=== PATIENT | male | born 1980 | race Caucasian/White ===

== ENCOUNTER 2019-04-17 04:55 | Emergency (ER) | payer BC ==
[2019-04-17] MEDS ORDERED: Sodium Chloride 0.9% 10 ML Syringe FLUSH PRN (05:16)
[2019-04-17] MEDS ORDERED: Sodium Chloride 0.9% 2.5 ML Syringe FLUSH PRN (05:16)
[2019-04-17] MEDS ORDERED: Sodium Chloride 0.9% 1,000 ML IV ONE (05:16)
--- NOTE | 2019-04-17 05:16 | EDM.PDOC ---
ED HPI GENERAL MEDICAL PROBLEM - General Chief Complaint: General Stated Complaint: HEART PALPITATIONS Time Seen by Provider: 04/17/19 05:06 - History of Present Illness INITIAL COMMENTS - FREE TEXT/NARRATIVE: HISTORY AND PHYSICAL: History of present illness: The patient is a healthy 38 y/o male who presents with 3 brief episodes of near syncope associated with lightheadedness that occurred while he was at work about 2 hours ago. The patient says that over the last 2 days he has not quite felt himself and has an ill-defined overall not well feeling but there was nothing specific going on such as fever chills upper respiratory symptoms abdominal pain vomiting or diarrhea. The patient says that this started on Wednesday and yesterday when he got to the job site he didn't feel quite right and felt a little strange feeling in the front of his head area there was no pain involved but as he was doing his job about 2 hours ago he was at a critical point where he could not stop doing what he was doing and he felt this buzzing sensation in the front of his head become more intense and he felt like he was going to pass out and fall backwards. He thought that incision because he knew that if he stopped doing his job at that point they would be serious ramifications and this occurred 3 times briefly and then when he was able to step away from his work he did so. He never fully passed out or blacked out and he was seated during these events. He did not have headache pain or neck pain and he did not have chest pain palpitations or shortness of breath during these episodes of near syncope. He says that after the events happened and he was able to step away from his work as that critical moment had passed he like his heart was racing but he thinks that may be more anxiety driven due to his concerns about the work he was doing. He says that he never got nauseated never got short of breath never got diaphoretic no vomiting and no focal numbness weakness or tingling to his extremities. He said that the headache started after these events and it is diffuse and ill-defined and not localize right or left front or back. The patient has no recent trauma. He does say that his mouth is felt very dry over the last 24 hours or so even though he is drinking a lot of water. The patient does drink 1 caffeinated beverage a day and does have one or 2 drinks at the end of his shift to help him go to sleep but he has not been drinking heavily recently. Here in the ED he has no complaints other than concerns about what happened at work tonight and understanding the cause as he tells me he has never left the work site before and this is the first and only time that has ever happened. He did not take any medications prior to coming here and he ambulated to the ED from triage. The patient does admit that he has "bad teeth" but he has not been able to get to a dentist and he has no specific new pain or swelling to those areas. He does also tell me that he has had some ringing in his ear for the last almost 10 months and has not sought evaluation but that is not new or different this evening either. The patient specifically says that he was not dizzy nor was the room spinning during these events it was a sensation like he was going to pass out. Again the palpitations occurred after the 3 brief episodes of near syncope. Review of systems: As per history of present illness and below otherwise all systems reviewed and negative. Past medical history: As per history of present illness and as reviewed below otherwise noncontributory. Surgical history: As per history of present illness and as reviewed below otherwise noncontributory. Social history: No reported history of drug or alcohol abuse. Family history: As per history of present illness and as reviewed below otherwise noncontributory. Physical exam: General: Well-developed well-nourished man who is nontoxic and vital signs are noted by me. He was easily in the ED without distress somewhat anxious on my evaluation HEENT: Atraumatic, normocephalic, pupils reactive, negative for conjunctival pallor or scleral icterus, mucous membranes moist, throat clear, neck supple, nontender, trachea midline. There is no mastoid tenderness or erythema bilaterally and the TMs are dulled bilaterally. There is no cervical adenopathy nuchal rigidity and no thyromegaly. There is no visible facial swelling and there is diffuse dental disease and multiple areas of dental decay the most noteworthy is the left lower premolar or molar area where there is erosion of teeth diffusely and there are multiple other areas of caries and same. Lungs: Clear to auscultation, breath sounds equal bilaterally, chest nontender. Heart: S1S2, regular, negative for clicks, rubs, or JVD. Abdomen: Soft, nondistended, nontender. Negative for masses or hepatosplenomegaly. Negative for costovertebral tenderness. Pelvis: Stable nontender. Genitourinary: Deferred. Rectal: Deferred. Extremities: Atraumatic, negative for cords or calf pain. Neurovascular unremarkable. No pedal edema or leg asymmetry Neuro: Awake, alert, oriented. Cranial nerves II through XII unremarkable. Cerebellum unremarkable. Motor and sensory unremarkable throughout. Exam nonfocal. Diagnostics: EKG CBC CMP troponin TSH orthostatic vitals. With reflex chest x-ray CT scan of the head Therapeutics: IV O2 monitor IV fluids , patient was offered Toradol and Tylenol and declines both I discussed with the patient at length of these episodes he had today are highly unusual and unexplainable from the workup that I performed and have offered him 23 hour observation. He says that he still has no pain and has no palpitations but he just doesn't feel right and feels very off and "kind of fuzzy in his head". He seems very resistant to wanting to stay in the hospital because he has his job and he has concerns about that but I stated my concerns about him going home without further evaluation and observation and not having a provider in town. If he chooses not to be admitted to the hospital and will place him on the expedited Follow- list to try to get into our clinic After much thought the patient has decided that he does not want to be admitted to the hospital. He is aware of our concerns and accepts and we will place his name on the follow-up list Impression: Episodes of near syncope and palpitations Definitive disposition and diagnosis as appropriate pending reevaluation and review of above. - Related Data Allergies Allergy/AdvReac Type Severity Reaction Status Date / Time No Known Allergies Allergy Verified 04/17/19 04:59 Home Meds: Home Meds . [No Known Home Meds] 04/17/19 [History] ED ROS GENERAL - Review of Systems Review Of Systems: Comprehensive ROS is negative, except as noted in HPI. ED EXAM, GENERAL - Physical Exam Exam: See Below (see dictation) Course - Vital Signs Last Recorded V/S: Last Vital Signs Temp 36.1 C 04/17/19 05:00 Pulse 59 L 04/17/19 05:34 Resp 14 04/17/19 05:34 BP 120/83 04/17/19 05:34 Pulse Ox 96 11/18/19 05:34 Orthostatic Blood Pressure [ 137/90 Standing] Orthostatic Blood Pressure [ 132/85 Sitting] Orthostatic Blood Pressure [ 139/89 Supine] - Orders/Labs/Meds Orders: Active Orders 24 hr Category Date Time Status Blood Glucose Check, Bedside [] ONETIME Care 04/17/19 05:09 Active Cardiac Monitoring [] . DIRECTED Care 04/17/19 05:14 Active Oxygen Therapy, ED [] ASDIRECTED Care 04/17/19 05:14 Active Pulse Oximetry [] ASDIRECTED Care 04/17/19 05:14 Active Sodium Chloride 0.9% [Normal Saline] 1,000 ml Med 04/17/19 05:16 Active IV STAT Sodium Chloride 0.9% [Saline Flush] Med 04/17/19 05:16 Active 10 ml FLUSH ASDIRECTED PRN Sodium Chloride 0.9% [Saline Flush] Med 04/17/19 05:16 Active 2.5 ml FLUSH ASDIRECTED PRN Saline Lock Insert [OM.PC] Stat Oth 04/17/19 05:16 Ordered Medication Orders Sodium Chloride (Normal Saline) 1,000 mls @ 999 mls/hr IV STAT ONE Stop: 04/17/19 06:16 Last Admin: 04/17/19 05:38 Dose: 999 mls/hr Sodium Chloride (Saline Flush) 10 ml FLUSH ASDIRECTED PRN PRN Reason: Keep Vein Open Sodium Chloride (Saline Flush) 2.5 ml FLUSH ASDIRECTED PRN PRN Reason: Keep Vein Open Labs: Laboratory Tests 04/17/19 04/17/19 04/17/19 Range/Units 05:00 05:00 05:00 WBC 6.22 (4.0-11.0) K/uL RBC 4.99 (4.50-5.90) M/uL Hgb 16.0 (13.0-17.0) g/dL Hct 44.3 (38.0-50.0) % MCV 88.8 (80.0-98.0) fL MCH 32.1 H (27.0-32.0) pg MCHC 36.1 (31.0-37.0) g/dL RDW Std Deviation 40.7 (28.0-62.0) fl RDW Coeff of Barbara 13 (11.0-15.0) % Plt Count 173 (150-400) K/uL MPV 9.50 (7.40-12.00) fL Neut % (Auto) 64.9 (48.0-80.0) % Lymph % (Auto) 22.8 (16.0-40.0) % [place] % (Auto) 10.8 (0.0-15.0) % Eos % (Auto) 1.0 (0.0-7.0) % Baso % (Auto) 0.5 (0.0-1.5) % Neut # (Auto) 4.0 (1.4-5.7) K/uL Lymph # (Auto) 1.4 (0.6-2.4) K/uL [place] # (Auto) 0.7 (0.0-0.8) K/uL Eos # (Auto) 0.1 (0.0-0.7) K/uL Baso # (Auto) 0.0 (0.0-0.1) K/uL Nucleated RBC % 0.0 /100WBC Nucleated RBCs # 0 K/uL Sodium 137 (136-148) mmol/L Potassium 3.9 (3.5-5.1) mmol/L Chloride 99 (98-107) mmol/L Carbon Dioxide 27.5 (21.0-32.0) mmol/L BUN 12 (7.0-18.0) mg/dL Creatinine 1.3 (0.8-1.3) mg/dL Est Cr Clr Drug Dosing 93.24 mL/min Estimated GFR (MDRD) > 60.0 ml/min Glucose 89 (74-106) mg/dL Calcium 8.9 (8.5-10.1) mg/dL Total Bilirubin 1.0 (0.2-1.0) mg/dL AST 56 H (15-37) IU/L ALT 160 H (14-63) IU/L Alkaline Phosphatase 57 (46-116) U/L Troponin I < 0.050 (0.000-0.056) ng/mL Total Protein 8.0 (6.4-8.2) g/dL Albumin 4.4 (3.4-5.0) g/dL Globulin 3.6 (2.6-4.0) g/dL Albumin/Globulin Ratio 1.2 (0.9-1.6) TSH 3rd Generation 1.37 (0.36-3.74) uIU/mL Urine Color COLORLESS Urine Appearance CLEAR Urine pH 5.5 (5.0-8.0) Ur Specific [place] <= 1.005 (1.001-1.035) Urine Protein NEGATIVE (NEGATIVE) mg/dL Urine Glucose (UA) NEGATIVE (NEGATIVE) mg/dL Urine Ketones NEGATIVE (NEGATIVE) mg/dL Urine Occult Blood NEGATIVE (NEGATIVE) Urine Nitrite NEGATIVE (NEGATIVE) Urine Bilirubin NEGATIVE (NEGATIVE) Urine Urobilinogen 0.2 (<2.0) EU/dL Ur Leukocyte Esterase NEGATIVE (NEGATIVE) Meds: Medications Generic Name Dose Route Start Last Admin Trade Name Freq PRN Reason Stop Dose Admin Sodium Chloride 1,000 mls @ 999 mls/hr 04/17/19 05:16 04/17/19 05:38 Normal Saline IV 04/17/19 06:16 999 mls/hr STAT ONE Administration Sodium Chloride 10 ml 04/17/19 05:16 Saline Flush FLUSH ASDIRECTED PRN Keep Vein Open Sodium Chloride 2.5 ml 04/17/19 05:16 Saline Flush FLUSH ASDIRECTED PRN Keep Vein Open Discontinued Medications Generic Name Dose Route Start Last Admin Trade Name Freq PRN Reason Stop Dose Admin Ketorolac Tromethamine 30 mg 04/17/19 05:45 04/17/19 05:50 Toradol IVPUSH 04/17/19 05:46 Not Given ONETIME ONE Departure - Departure Time of Disposition: 06:08 Disposition: Home, Self-Care 01 Condition: Good Clinical Impression: Near syncope - Discharge Information Forms: ED Department Discharge Additional Instructions: The following information is given to patients seen in the emergency department who are being discharged to home. This information is to outline your options for follow-up care. We provide all patients seen in our emergency department with a follow-up referral. The need for follow-up, as well as the timing and circumstances, are variable depending upon the specifics of your emergency department visit. If you don't have a primary care physician on staff, we will provide you with a referral. We always advise you to contact your personal physician following an emergency department visit to inform them of the circumstance of the visit and for follow-up with them and/or the need for any referrals to a consulting specialist. The emergency department will also refer you to a specialist when appropriate. This referral assures that you have the opportunity for followup care with a specialist. All of these measure are taken in an effort to provide you with optimal care, which includes your followup. Under all circumstances we always encourage you to contact your private physician who remains a resource for coordinating your care. When calling for followup care, please make the office aware that this follow-up is from your recent emergency room visit. If for any reason you are refused follow-up, please contact the [facility] emergency department at and ask to speak to the emergency department charge nurse. [facility] Primary [facility]- Internal Medicine and Family [address] [address] Please continue to monitor your symptoms and keep a symptom log of things that are on her unusual to help her provider in the clinic direct the next stages of your workup for these issues. Please call the clinic this morning and schedule a follow-up appointment in the next few days and make sure to mention that your name is on the expedited follow-up list. Return to ER as needed and as discussed. - My Orders Last 24 Hours: My Active Orders 04/17/19 05:09 Blood Glucose Check, Bedside [RC] ONETIME 04/17/19 05:14 Cardiac Monitoring [RC] . DIRECTED Oxygen Therapy, ED [RC] ASDIRECTED Pulse Oximetry [RC] ASDIRECTED 04/17/19 05:16 Sodium Chloride 0.9% [Normal Saline] 1,000 ml IV STAT Sodium Chloride 0.9% [Saline Flush] 10 ml FLUSH ASDIRECTED PRN Sodium Chloride 0.9% [Saline Flush] 2.5 ml FLUSH ASDIRECTED PRN Saline Lock Insert [OM.PC] Stat - Assessment/Plan Last 24 Hours: My Active Orders 04/17/19 05:09 Blood Glucose Check, Bedside [RC] ONETIME 04/17/19 05:14 Cardiac Monitoring [RC] . DIRECTED Oxygen Therapy, ED [RC] ASDIRECTED Pulse Oximetry [RC] ASDIRECTED 04/17/19 05:16 Sodium Chloride 0.9% [Normal Saline] 1,000 ml IV STAT Sodium Chloride 0.9% [Saline Flush] 10 ml FLUSH ASDIRECTED PRN Sodium Chloride 0.9% [Saline Flush] 2.5 ml FLUSH ASDIRECTED PRN Saline Lock Insert [OM.PC] Stat
[2019-04-17 05:40] LABS: BLOOD UREA NITROGEN,BUN 12 mg/dL (7.0-18.0); CARBON DIOXIDE,CO2 27.5 mmol/L (21.0-32.0); CHLORIDE,CL 99 mmol/L (98-107); GLUCOSE RANDOM 89 mg/dL (74-106); POTASSIUM,K 3.9 mmol/L (3.5-5.1); SODIUM,NA 137 mmol/L (136-148)
--- NOTE | 2019-04-17 05:42 | CR ---
INDICATION: Near syncopal event times 3 today TECHNIQUE: Chest radiograph 1 view on 2 films COMPARISON: None FINDINGS: Mediastinum: The mediastinum is normal in appearance. The heart silhouette is normal in size and morphology. Lung: Both lungs are unremarkable in appearance. No sign of pleural effusion seen. No pneumothorax is identified. Bone and Soft tissue: Unremarkable for age. IMPRESSION: 1. No acute cardiopulmonary disease is seen. Dictated by: George Shin MD @ 04/17/2019 05:41:11 (Electronically Signed)
--- NOTE | 2019-04-17 05:44 | CT ---
INDICATION: Near syncopal event times 3 today TECHNIQUE: CT Head without i.v. contrast. COMPARISON: None FINDINGS: CSF space: The ventricles are normal for age. Brain: No evidence of mass, acute infarction or hemorrhage is seen. No mass-effect or midline shift is seen. The brain parenchyma is otherwise normal in appearance with preservation of the fam-white matter junction. Calvarium: The visualized paranasal sinuses are well aerated. The mastoid air cells are clear. The visualized orbits are grossly unremarkable. The calvarium is unremarkable in appearance with no fractures identified. IMPRESSION: 1. No evidence of acute infarction, intracranial hemorrhage, or mass-effect seen. Please note that all CT scans at this facility use dose modulation, iterative reconstruction, and/or weight-based dosing when appropriate to reduce radiation dose to as low as reasonably achievable. Dictated by: George Shin MD @ 04/17/2019 05:42:21 (Electronically Signed)
[2019-04-17] MEDS ORDERED: Ketorolac 30 MG/ML SDV IVPUSH ONE (05:45)
== END 2019-04-17 06:15 | disposition home or self-care (01) ==
LOC: MW.ED 04:55
DX: R55 Syncope and collapse (principal); R00.2 Palpitations
CPT/HCPCS: 36415; 70450; 71045; 80053; 81003; 84443; 84484; 85025; 93005; 96360; 99284; J7040; 99285; J7030

== ENCOUNTER 2019-10-04 13:37 | Emergency (ER) | payer BC ==
[2019-10-04] MEDS ORDERED: Lidocaine 1% 10 ML MDV INJECT ONE (13:53)
[2019-10-04] MEDS ORDERED: Diphtheria,Pertussis(Acell),Tetanus Vaccine 0.5 ML Syringe IM ONE (13:59)
--- NOTE | 2019-10-04 13:59 | EDM.PDOC ---
ED HPI GENERAL MEDICAL PROBLEM - General Chief Complaint: Laceration Stated Complaint: CUT ON HAND Time Seen by Provider: 10/04/19 13:39 - History of Present Illness INITIAL COMMENTS - FREE TEXT/NARRATIVE: History of present illness: [Patient presents with a right nondominant hand that he dropped 2 pieces of heavy metal onto lacerating the volar aspect at the base of his fifth digit 1.5 cm laceration at this location that is clean he is describing the numbness distally to the wound full motor control is present tetanus is questionably not up-to-date patient does not have any other medical problems or other injuries. He is left-hand dominant. This occurred 1 hour prior to arrival] Review of systems: As per history of present illness and below otherwise all systems reviewed and negative. Past medical history: As per history of present illness and as reviewed below otherwise noncontributory. Surgical history: As per history of present illness and as reviewed below otherwise noncontributory. Social history: No reported history of drug or alcohol abuse. Family history: As per history of present illness and as reviewed below otherwise noncontributory. Physical exam: HEENT: Atraumatic, normocephalic, pupils reactive, negative for conjunctival pallor or scleral icterus, mucous membranes moist, throat clear, neck supple, nontender, trachea midline. Lungs: Clear to auscultation, breath sounds equal bilaterally, chest nontender. Heart: S1S2, regular, negative for clicks, rubs, or JVD. Abdomen: Soft, nondistended, nontender. Negative for masses or hepatosplenomegaly. Negative for costovertebral tenderness. Pelvis: Stable nontender. Genitourinary: Deferred. Rectal: Deferred. Extremities: Atraumatic, negative for cords or calf pain. Neurovascular unremarkable. 0.5 cm laceration to the volar aspect of the right nondominant fifth digit Neuro: Awake, alert, oriented. Cranial nerves II through XII unremarkable. Cerebellum unremarkable. Motor and sensory unremarkable throughout. Exam nonfocal. Diagnostics: [] Therapeutics: [] Impression: Fifth digit laceration [] Plan: To there being a crush injury and x-ray will be obtained the wound will then be anesthetized irrigated explored and repaired. Will be updated [] Definitive disposition and diagnosis as appropriate pending reevaluation and review of above. Right 5th Finger Pain Score (Numeric/FACES): 6 - Related Data Allergies Allergy/AdvReac Type Severity Reaction Status Date / Time No Known Allergies Allergy Verified 10/04/19 13:59 Home Meds: Home Meds . 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 Hematologic History: Reports: None Immunologic History: Reports: None Oncologic (Cancer) History: Reports: None Dermatologic History: Reports: None - Infectious Disease History Infectious Disease History: Reports: None - Past Surgical History Head Surgeries/Procedures: Reports: None Social & Family History - Family History Family Medical History: Noncontributory - Caffeine Use Caffeine Use: Reports: Energy Drinks ED ROS GENERAL - Review of Systems Review Of Systems: See Below ED EXAM, SKIN/RASH Exam: See Below ED SKIN PROCEDURES - Laceration/Wound Repair Right Digit - 5th (Baby) Appearance: Superficial, Clean Distal NVT: No Tendon Injury, Other (There is numbness distal to the injury on the volar aspect of the finger) Anesthetic Type: Digital Local Anesthesia - Lidocaine (Xylocaine): 1% Plain Local Anesthetic Volume: 5cc Skin Prep: Saline Exploration/Debridement/Repair: Wound Explored, In a Bloodless Field, Explored to Base Closed with: Sutures Lac/Wound length In cm: 1.5 (6 sutures) Suture Size: 3-0 Course - Vital Signs Last Recorded V/S: Last Vital Signs Temp 37.1 C 10/04/19 14:04 Pulse 84 10/04/19 14:04 Resp 16 10/04/19 14:04 BP 126/79 10/04/19 14:04 Pulse Ox 97 10/04/19 14:04 - Orders/Labs/Meds Orders: Active Orders 24 hr Category Date Time Status Vaccines to be Administered [RC] PER UNIT ROUTINE Care 10/04/19 13:59 Active Meds: Medications Discontinued Medications Generic Name Dose Route Start Last Admin Trade Name Freq PRN Reason Stop Dose Admin Diphtheria/Tetanus/Acell Pertussis 0.5 ml 10/04/19 13:59 Adacel IM 10/04/19 14:00 .ONCE ONE Lidocaine HCl 10 ml 10/04/19 13:53 10/04/19 14:41 Xylocaine 1% INJECT 10/04/19 13:54 Not Given ONETIME ONE Lidocaine HCl 5 ml 10/04/19 14:07 Xylocaine-Mpf 1% INJECT 10/04/19 14:08 ONETIME ONE Lidocaine HCl Confirm 10/04/19 14:07 10/04/19 14:41 Xylocaine-Mpf 1% Administered 10/04/19 14:08 Not Given Dose 5 ml .ROUTE .STK-MED ONE Departure - Departure Time of Disposition: 14:53 Disposition: Home, Self-Care 01 Clinical Impression: Laceration - Discharge Information *PRESCRIPTION DRUG MONITORING PROGRAM REVIEWED*: Not Applicable *COPY OF PRESCRIPTION DRUG MONITORING REPORT IN PATIENT NIESHA: Not Applicable Instructions: Laceration Care, Adult, [id number] Referrals: PCP,Unknown [Primary Care Provider] - Forms: ED Department Discharge Additional Instructions: The following information is given to patients seen in the emergency department who are being discharged to home. This information is to outline your options for follow-up care. We provide all patients seen in our emergency department with a follow-up referral. The need for follow-up, as well as the timing and circumstances, are variable depending upon the specifics of your emergency department visit. If you don't have a primary care physician on staff, we will provide you with a referral. We always advise you to contact your personal physician following an emergency department visit to inform them of the circumstance of the visit and for follow-up with them and/or the need for any referrals to a consulting specialist. The emergency department will also refer you to a specialist when appropriate. This referral assures that you have the opportunity for follow-up care with a specialist. All of these measure are taken in an effort to provide you with optimal care, which includes your follow-up. Under all circumstances we always encourage you to contact your private physician who remains a resource for coordinating your care. When calling for follow-up care, please make the office aware that this follow-up is from your recent emergency room visit. If for any reason you are refused follow-up, please contact the [facility] Emergency Department at and asked to speak to the emergency department charge nurse. Re-return to the ED in 10 days for suture removal [facility] [address] [place] [address] [facility] [address] [place] [address] Sepsis Event Note - Focused Exam Vital Signs: Vital Signs Temp Pulse Resp BP Pulse Ox 10/04/19 14:04 37.1 C 84 16 126/79 97 Date Exam was Performed: 10/04/19 Time Exam was Performed: 14:51 - My Orders Last 24 Hours: My Active Orders 10/04/19 13:59 Vaccines to be Administered [RC] PER UNIT ROUTINE - Assessment/Plan Last 24 Hours: My Active Orders 10/04/19 13:59 Vaccines to be Administered [RC] PER UNIT ROUTINE
--- NOTE | 2019-10-04 14:38 | CR ---
Right hand: 2 views of the right hand were obtained. Comparison: No previous hand study. Surgical anchor is noted within the distal 1st metacarpal. No acute fracture, dislocation or other bony abnormality is appreciated. Impression: 1. Prior thumb surgery. 2. 2 view right hand exam is otherwise unremarkable. Diagnostic code #2 This report was dictated in MDT
== END 2019-10-04 15:06 | disposition home or self-care (01) ==
LOC: MW.ED 13:37
DX: S61.216A Laceration without foreign body of right little finger without damage to nail, initial encounter (principal); Z23 Encounter for immunization; W20.8XXA Other cause of strike by thrown, projected or falling object, initial encounter
CPT/HCPCS: 12001; 73120; 90471; 90715; 99283; J2001; 99282

== ENCOUNTER 2022-04-11 19:31 | Emergency (ER) | payer SELFPAY ==
[2022-04-11] MEDS ORDERED: Ondansetron 4 MG/2 ML SDV IVPUSH ONE (19:56)
[2022-04-11] MEDS ORDERED: LORazepam 2 MG/ML SDV IVPUSH ONE (19:56)
[2022-04-11] MEDS ORDERED: Sodium Chloride 0.9% 1,000 ML IV ONE (19:56)
[2022-04-11 20:51] LABS: ACETAMINOPHEN <2.0 ug/mL; BLOOD UREA NITROGEN,BUN 11 mg/dL (7.0-18.0); CARBON DIOXIDE,CO2 24.2 mmol/L (21.0-32.0); CHLORIDE,CL 100 mmol/L (98-107); GLUCOSE RANDOM 92 mg/dL (74-106); LIPASE 91 U/L (73-393); POTASSIUM,K 3.8 mmol/L (3.5-5.1); SODIUM,NA 141 mmol/L (136-148)
[2022-04-11 20:56] LABS: ESTIMATED GFR 98 mL/min (>60)
[2022-04-11] MEDS ORDERED: chlordiazePOXIDE 25 MG Cap PO ONE (21:33)
== END 2022-04-11 22:01 | disposition home or self-care (01) ==
LOC: MW.ED 19:31
DX: F10.10 Alcohol abuse, uncomplicated (principal); Z20.822 Contact with and (suspected) exposure to COVID-19; Y90.8 Blood alcohol level of 240 mg/100 ml or more
CPT/HCPCS: 36415; 80053; 80143; 80179; 80305; 80307; 81001; 83690; 83735; 84443; 85025; 87635; 96361; 96374; 96375; 99284; A9270; J2060; J2405; J7030; U0002

== ENCOUNTER 2022-08-13 20:34 | Emergency (ER) | payer OTHER ==
[2022-08-13] MEDS ORDERED: Sodium Chloride 0.9% 10 ML Syringe FLUSH PRN (21:34)
[2022-08-13] MEDS ORDERED: Sodium Chloride 0.9% 2.5 ML Syringe FLUSH PRN (21:34)
[2022-08-13] MEDS ORDERED: Sodium Chloride 0.9% 1,000 ML IV ONE ×2 (21:35→23:23)
[2022-08-13] MEDS ORDERED: Ondansetron 4 MG/2 ML SDV IVPUSH ONE (21:35)
[2022-08-13 22:31] LABS: CARBON DIOXIDE,CO2 28.5 mmol/L (21.0-32.0); POTASSIUM,K 3.8 mmol/L (3.5-5.1)
== END 2022-08-14 00:47 | disposition left against medical advice (07) ==
LOC: MW.ED 20:34
DX: F10.129 Alcohol abuse with intoxication, unspecified (principal); Y90.8 Blood alcohol level of 240 mg/100 ml or more
CPT/HCPCS: 36415; 80053; 80305; 80307; 85025; 96361; 96374; 99284; J2405; J3490; J7030